=== PATIENT | female | born 1935 | race Caucasian/White ===

== ENCOUNTER 2023-10-12 10:34 | Emergency (ER) | payer SELFPAY ==
[2023-10-12 10:40] VITALS: BP 166/84; PULSE 74; TEMP 36.7; O2SAT 95; BMI 15.9
--- NOTE | 2023-10-12 10:58 | XR_ITS ---
The [address] [address] Patient Name: ANAT COLLINS MRN: [id number] date: 1935 Sex: F Assigned Patient Location: ER Current Patient Location: [facility] Accession/Order Number: [id number] Exam Date: 10/12/2023 11:55 Report Date: 10/12/2023 12:25 At the request of: KAREN PHILLIPS Procedure: XR knee LT 3V EXAM: Left knee HISTORY: . Fall . COMPARISON: None. TECHNIQUE: 4 views FINDINGS: No fracture or dislocation of the knee is noted. Small spurs are noted involving the joint. Faint calcifications are noted involving the menisci consistent with early chondrocalcinosis. There is slight fullness in the suprapatellar region suggesting a small suprapatellar effusion. XR/XR knee LT 3V IMPRESSION: .. 1. Early arthritic changes of left knee. 2. Early chondrocalcinosis. 3. Slight fullness in the suprapatellar region suggesting a small suprapatellar effusion. Electronically authenticated by: LAURENCE BARAJAS Date: 10/12/2023 12:25
--- NOTE | 2023-10-12 11:04 | ED_ITS ---
HPI HPI - Fall General Chief Complaint: Extremity Injury, Lower Stated Complaint: FACIAL INJURY/ BILATERAL LOWER EXTREMITY INJURY Time Seen by Provider: 10/12/23 10:53 Source: patient and family Mode of arrival: walk-in History of Present Illness HPI Narrative: This patient is here for evaluation of left knee pain. Actually her fall and injury occurred yesterday. She was with her family. She stumbled and a hole was that was near a shopping store. She her family member says she hit her nasal area and it bled for a while. They brought her in today because now her left knee is hurting. When I examined her she said that the right knee was not bothering her and it was only her left knee. There is no loss of consciousness there is been no change in mental status since the yesterday. She does not have any pain in her head or neck area. There is abrasions to her nasal area and some swelling in her left knee are the primary concerns today. Related Data Allergies Allergy/AdvReac Type Severity Reaction Status Date / Time No Known Drug Allergies Allergy Verified 10/12/23 10:44 Opioid HPI Opioid Management Most Recent Pain and Opioid Data: Last ED Pain Assessment 10/12/23 11:14 Exam Narrative Exam Narrative: Awake alert normal cognition GCS is 15. She has no tenderness to palpation over the neck or the cranium. Mental status is completely normal. Examining her right knee she has complete spontaneous range of motion with no ecchymosis deformity erythema or tenderness to the right knee or patella. The left knee does have some bruising and ecchymosis no joint effusion is noted. She has discomfort when trying to flex the knee while in the sitting position. The ankle and her lower limb and pelvis are asymptomatic. Constitutional Vital Signs, click to edit/add: Last Vital Signs Temp 98.0 F 10/12/23 10:40 Pulse 64 10/12/23 11:43 Resp 14 10/12/23 11:43 BP 137/69 10/12/23 11:43 Pulse Ox 98 10/12/23 11:43 O2 Del Method Room Air 10/12/23 10:40 Course Vital Signs Vital signs: Vital Signs Temperature 98.0 F 10/12/23 10:40 Pulse Rate 74 10/12/23 10:40 Respiratory Rate 16 10/12/23 10:40 Blood Pressure 166/84 H 10/12/23 10:40 Pulse Oximetry 95 10/12/23 10:40 Oxygen Delivery Method Room Air 10/12/23 10:40 Temperature 98.0 F 10/12/23 10:40 Pulse Rate 64 10/12/23 11:43 Respiratory Rate 14 10/12/23 11:43 Blood Pressure 137/69 10/12/23 11:43 Pulse Oximetry 98 10/12/23 11:43 Oxygen Delivery Method Room Air 10/12/23 10:40 MDM - Fall MDM Narrative Medical decision making narrative: X-rays were done of her left knee. She agreed that she does not need nasal x- rays. I preliminary review of the knee x-ray was negative for acute fracture. We will put her in a knee immobilizer. Ice and rest was advised that she can follow-up with our local orthopedic clinic as necessary Discharge Plan Discharge Stand Alone Forms: Portal Instructions Chief Complaint: Extremity Injury, Lower Clinical Impression: Contusion of left knee Patient Disposition: Home, Self-Care Time of Disposition Decision: 11:57 Print Language: Indonesian Additional Instructions: Alternate Tylenol with ibuprofen the pain, follow-up with Dr. Steen orthopedic clinic as needed, use knee brace until reevaluated by your physician Referrals: Hair Vera DO [Primary Care Provider] - 1 week
[2023-10-12 11:43] VITALS: BP 137/69; PULSE 64; O2SAT 98
== END 2023-10-12 12:13 | disposition home or self-care (01) ==
PROVIDERS: Emergency Provider Emergency Medicine Emergency Medical Services; PCP Family Medicine
DX: S80.02XA Contusion of left knee, initial encounter (principal); W01.10XA Fall on same level from slipping, tripping and stumbling with subsequent striking against unspecified object, initial encounter
CPT/HCPCS: 73562; 99283

== ENCOUNTER 2024-10-22 16:17 | Emergency (ER) | payer MEDICARE, SELFPAY ==
--- OUTSIDE RECORDS SUMMARY | 2024-10-20 23:59 | XMS_ITS | Continuity of Care Document ---
Author Organization [facility] Address Unknown Care Team Providers Care Non Emergency Services Ambulance Driver Name Role Phone DOLORES MORAES Primary Care Physician [phone] Encounter FT_FIN [id number] Date(s): 10/20/24 - 10/20/[address] [address]- Discharge Disposition: Home (Routine DC) Attending Physician: Eugenia Cheema PA-C Admitting Physician: Eugenia Cheema PA-C Encounter Type: Lab Drop off Allergies, Adverse Reactions, Alerts No Known Allergies Assessment and Plan Diagnostic Tests Pending * Urine Culture 10/20/24 Medications amLODIPine 2.5 mg Tab 2.5 mg = 1 tab(s), Oral, Daily, # 30 tab(s), Refills(s) 0 Start Date: 02/05/24 Status: Ordered Quantity: 30.0 Unit: tab(s) Repeat number: 1 atenolol 25 mg, Oral, Daily, Refills(s) 0 Start Date: 03/04/24 Status: Ordered Repeat number: 1 Cipro 500 mg Tab 500 mg = 1 tab(s), Oral, q12hr, X 7 day(s), # 14 tab(s), Refills(s) 0, Pharmacy: [facility] #72, 152, cm, 10/20/24 14:46:00 EDT, Height/Length Dosing, 37.6, kg, 10/20/24 14:46:00 EDT, Weight Dosing Start Date: 10/20/24 Stop Date: 10/27/24 Status: Ordered Quantity: 14.0 Unit: tab(s) Repeat number: 1 Indications: Urinary tract infection, site not specified; Unspecified symptoms and signs involving the genitourinary system; cranberry See Instructions, Refill(s) 0 Start Date: 03/04/24 Status: Ordered Repeat number: 1 D-Mannose D-Mannose Start Date: 03/04/24 Status: Ordered Repeat number: 1 Estrace 0.1 mg/g Cream See Instructions, 42.5 gm, Refill(s) 1, Apply a pea-sized amount to the vagina/urethra 3x/week for a month, then 2x/week for maintenance, [facility] #72, 152, cm, 09/15/24 15:04:00 EDT, Height/Length Dosing, 37.6, kg, 09/15/24 15:04:00 EDT, Weight Dosing Start Date: 09/15/24 Status: Ordered Quantity: 42.5 Unit: g Repeat number: 2 Indications: Postmenopausal atrophic vaginitis; Evista 60 mg Tab 60 mg = 1 tab(s), Oral, Daily, # 30 tab(s), Refills(s) 0 Start Date: 02/05/24 Status: Ordered Quantity: 30.0 Unit: tab(s) Repeat number: 1 Probiotic Probiotic Start Date: 03/04/24 Status: Ordered Repeat number: 1 Problem List Condition Confirmation Course Effective Dates Status [facility] Informant Vaginal atrophy Confirmed Active Feeling of incomplete bladder emptying Confirmed Active Recurrent UTI Confirmed Active Other urethral stricture, female Confirmed Active UTI symptoms Confirmed Active Social History Social History Type Response Smoking Status Never (less than 100 in lifetime);Never; Concerns about tobacco use in household: No entered on: 10/20/24 Sex Female Sex Representation Female (finding) Patient Care team information Care Team Personnel Name: DOLORES MORAES DO Position: FT Physician Member Role: Primary Care Physician Address: [address] [place] [address] Telecom: Care Team Related Persons Name: LIN GARCIA Name: LIN GARCIA Insurance Providers Guarantor name: ANAT COLLINS Well Plan Information #: 1 Payer: NA Payer Identifier: [id number] Member Number: [id number] Group Number: [id number] Subscriber Identifier: [id number] Relationship to Subscriber: Self Coverage Type: MEDICARE Coverage Verification Date: NA Telecom: NA Address: NA
--- OUTSIDE RECORDS SUMMARY | 2024-10-20 23:59 | XMS_ITS | Continuity of Care Document ---
Author Organization [facility] Address [address] [place] [address] Care Team Providers Care Shellfish Manager Name Role Phone DOLORES MORAES Primary Care Physician [phone] Encounter FT_BOWEN [id number] Date(s): 10/20/24 - 10/20/24 [facility] [address] [place] [address] us Encounter Diagnosis Recurrent UTI(Discharge Diagnosis) - 10/20/24 UTI symptoms(Discharge Diagnosis) - 10/20/24 Vaginal atrophy(Discharge Diagnosis) - 10/20/24 Feeling of incomplete bladder emptying(Discharge Diagnosis) - 10/20/24 Other urethral stricture, female(Discharge Diagnosis) - 10/20/24 Discharge Disposition: Home (Routine DC) Attending Physician: Eugenia Cheema PA-C Encounter Type: Clinic Allergies, Adverse Reactions, Alerts No Known Allergies Medications amLODIPine 2.5 mg Tab 2.5 mg [...] day(s), # 14 tab(s), Refills(s) 0, Pharmacy: [facility] #72 152, cm, 10/20/24 14:46:00 EDT, Height/Length Dosing, [...] for a month, then 2x/week for maintenance, [facility] #72, 152, cm, 09/15/24 15:04:00 EDT, Height/Length [...] List Condition Confirmation Course Effective Dates Status [facility] Informant Vaginal atrophy Confirmed Active Feeling of incomplete bladder emptying Confirmed Active Recurrent UTI Confirmed Active Other urethral stricture, female Confirmed Active UTI symptoms Confirmed Active Social History Social History Type Response Smoking Status Never (less than 100 in lifetime);Never; Concerns about tobacco use in household: No entered on: 10/20/24 Sex Female Sex Representation Female (finding) Hospital Discharge Instructions Patient Education 10/20/2024 15:39:16 Urinary Tract Infection, Adult Urinary Tract Infection, Adult A urinary tract infection (UTI) is an infection of any part of the urinary tract. The urinary tractincludes the kidneys, ureters, bladder, and urethra. These organs make, store, and get rid of urinein the body. An upper UTI affects the ureters and kidneys. A lower UTI affects the bladder and urethra. What are the causes? Most urinary tract infections are caused by bacteria in your genital area around your urethra, where urine leaves your body. These bacteria grow and cause inflammation of your urinary tract. What increases the risk? You are more likely to develop this condition if: ??? You have a urinary catheter that stays in place. ??? You are not able to control when you urinate or have a bowel movement (incontinence). ??? You are female and you: ??? Use a spermicide or diaphragm for control. ??? Have low estrogen levels. ??? Are . ??? You have certain genes that increase your risk. ??? You are sexually active. ??? You take antibiotic medicines. ??? You have a condition that causes your flow of urine to slow down, such as: ??? An enlarged prostate, if you are male. ??? Blockage in your urethra. ??? A kidney stone. ??? A nerve condition that affects your bladder control (neurogenic bladder). ??? Not getting enough to drink, or not urinating often. ??? You have certain medical conditions, such as: ??? Diabetes. ??? A weak disease-fighting system (immunesystem). ??? Sickle cell disease. ??? Gout. ??? Spinal cord injury. What are the signs or symptoms? Symptoms of this condition include: ??? Needing to urinate right away (urgency). ??? Frequent urination. This may include small amounts of urine each time you urinate. ??? Pain or burning with urination. ??? Blood in the urine. ??? Urine that smells bad or unusual. ??? Trouble urinating. ??? Cloudy urine. ??? Vaginal discharge, if you are female. ??? Pain in the abdomen or the lower back. You may also have: ??? Vomiting or a decreased appetite. ??? Confusion. ??? Irritability or tiredness. ??? A fever or chills. ??? Diarrhea. The first symptom in older adults may be confusion. In some cases, they may not have any symptoms until the infection has worsened. How is this diagnosed? This condition is diagnosed based on your medical history and a physical exam. You may also have other tests, including: ??? Urine tests. ??? Blood tests. ??? Tests for STIs (sexually transmitted infections). If you have had more than one UTI, a cystoscopy or imaging studies may be done to determine the cause of the infections. How is this treated? Treatment for this condition includes: ??? Antibiotic medicine. ??? Cmnb-git-hfaiqvr medicines to treat discomfort. ??? Drinking enough water to stay hydrated. If you have frequent infections or have other conditions such as a kidney stone, you may need to see a health care provider who specializes in the urinary tract (urologist). In rare cases, urinary tract infections can cause sepsis. Sepsis is a life- threatening condition that occurs when the body responds to an infection. Sepsis is treated in the hospital with IV antibiotics, fluids, and other medicines. Follow these instructions at home: Medicines ??? Take gher-dla-bykxgqy and prescription medicines only as told by your health care provider. ??? If you were prescribed an antibiotic medicine, take it as told by your health care provider. Donot stop using the antibiotic even if you start to feel better. General instructions ??? Make sure you: ??? Empty your bladder often and completely. Do not hold urine for long periods of time. ??? Empty your bladder after sex. ??? Wipe from front to back after urinating or having a bowel movement if you are female. Use each tissue only one time when you wipe. ??? Drink enough fluid to keep your urine pale yellow. ??? Keep all follow-up visits. This is important. Contact a health care provider if: ??? Your symptoms do not get better after 1???2 days. ??? Your symptoms go away and then return. Get help right away if: ??? You have severe pain in your back or your lower abdomen. ??? You have a fever or chills. ??? You have nausea or vomiting. Summary ??? A urinary tract infection (UTI) is an infection of any part of the urinary tract, which includes the kidneys, ureters, bladder, and urethra. ??? Most urinary tract infections are caused by bacteria in your genital area. ??? Treatment for this condition often includes antibiotic medicines. ??? If you were prescribed an antibiotic medicine, take it as told by your health care provider. Donot stop using the antibiotic even if you start to feel better. ??? Keep all follow-up visits. This is important. This information is not intended to replace advice given to you by your health care provider. Make sure you discuss any questions you have with your health care provider. Document Revised: 11/12/2020 Document Reviewed: 11/17/2020 [employer] Patient Education ?? 2023 [employer]. Follow Up Care 10/20/2024 13:12:28 With:Eugenia Cheema PA-C, URL Address: When:Within 6 Month(s) Patient Care team information Care Team Personnel Name: DOLORES MORAES DO Position: FT Physician Member Role: Primary Care Physician Address: [address] [place] [address] Telecom: Care Team Related Persons Name: LIN GARCIA Name: LIN GARCIA Insurance Providers Guarantor name: [facility] Information #: 1 Payer: NA Payer Identifier: [id number] Member Number: [id number] Group Number: [id number] Subscriber Identifier: [id number] Relationship to Subscriber: Self Coverage Type: MEDICARE Coverage Verification Date: 24 Telecom: NA Address:
[2024-10-22] VITALS (22 sets, daily range): BP systolic 138–194; BP diastolic 68–103; PULSE 59–98; TEMP 36.8; O2SAT 98–100; BMI 16.6
--- OUTSIDE RECORDS SUMMARY | 2024-10-22 16:25 | XMS_ITS | Clinical Summary ---
Author Organization [facility] Address [address] [place] [address] Care Team Providers Care Physics Teacher Name Role Phone Hair Vera Primary Care Provider [phone] Allergies Active Allergy Reactions Criticality Noted Date Comments Penicillins Unknown 12/10/2022 Medications atenolol (Tenormin) 25 MG tablet 3 Active amLODIPine (Norvasc) 2.5 MG tablet 3 Active raloxifene (Evista) 60 MG tablet Take 60 mg by mouth Daily Active Misc. Devices miscIndications :Closed displaced fracture of third metatarsal bone of left foot, initial encounter Dispense: Front Wheeled walker use 90 days. Ht: 4'10 Weight: 85lbs 1 Units 4 Active Additional Information Patient not taking.Reported on 09/30/2024 acetaminophen (Tylenol) 325 MG tablet Take 325 mg by mouth every 6 (six) hours if needed for mild pain Active Active Problems Problem Noted Date Diagnosed Date Unilateral inguinal hernia, without obstruction or gangrene, not specified as recurrent 12/13/2022 Asymmetrical sensorineural hearing loss 12/11/19 23 Sensorineural hearing loss (SNHL) of both ears 0 12/10/2022 Tinnitus of left ear 12/10/2022 Tonsillar cyst 12/10/2022 Osteoporosis 04/21/2007 Spinal stenosis in cervical region 04/21/2007 Encounters Date Type Department Care Team Description 10/19/2024 Telephone [facility] [address] [place] [phone] Elder Henderson DPM Bone Stimulator 10/05/2024 10:15 AM EDT Office Visit [facility] [address] [place] [phone] Elder Henderson, DPBasia Nondisplaced fracture of second metatarsal bone, left foot, initial encounter for closed fracture (Primary Dx); Pain of right foot; Osteopenia of right foot; Osteopenia of left foot 10/05/2024 Bamboo flowsheet [facility] [address] [place] [address] Elder Henderson DPM 10/05/2024 Travel 10/04/2024 Telephone [facility] [address] [place] [phone] Elder Henderson DPM Office notes needed. 10/01/2024 9:45 AM EDT Ancillary Procedure [facility] [address] [facility] [address] [place] [phone] 10/01/2024 Results Follow-Up [facility] [address] [place] [phone] Elder Henderson DPM 10/01/2024 Travel 09/30/2024 9:30 AM EDT Office Visit [facility] [address] [place] [phone] Elder Henderson, DPBasia Pain of left foot; Pain of right foot; Osteopenia of right foot; Osteopenia of left foot 09/30/2024 Bamboo flowsheet [facility] [address] [place] [phone] Elder Henderson DPM 09/30/2024 Travel 09/15/2024 10:40 AM EDT Ancillary Procedure [facility] [address] [place] [phone] 09/15/2024 10:30 AM EDT Office Visit [facility] [address] [place] [address] Dao Robledo PA Right foot pain (Primary Dx); Right foot strain, initial encounter 09/15/2024 Bamboo flowsheet [facility] [address] [facility] [place] [address] Dao Robledo PA 09/15/2024 Travel 07/26/2024 10:55 AM EDT Ancillary Procedure [facility] [address] [place] [address] 07/26/2024 10:40 AM EDT Ancillary Procedure [facility] [address] [place] [address] 07/26/2024 10:15 AM EDT Office Visit [facility] [address] [place] [address] Dao Robledo PA Right foot pain (Primary Dx); Plantar fasciitis, right; Left hip pain; Right hip pain; Left foot pain 07/26/2024 Bamboo flowsheet [facility] [address] [place] [address] Dao Robledo PA 07/26/2024 Travel from Last 3 Months Immunizations Immunization Administration Dates Next Due Influenza, High Dose Seasona l, Preservative Free 03/01/2019,01/29/2017,02/06/2016 Influenza, High-dose Seasona l, Quadrivalent, Preservative Free 01/09/2022,01/17/2021 Influenza, injectable, quadr ivalent, preservative free 01/31/2015 Influenza, seasonal, injectable 01/19/2018 Influenza, seasonal, injecta ble, preservative free 01/19/2017 Pneumococcal Conjugate, Unspecified 01/24/2016 Pneumococcal Polysaccharide PPSV23 02/03/2016 Family History Medical History Relation Name Comments black lung Father heart Mother Relation Name Status Comments Father Mother Social History Tobacco Use Types Packs/Day Years Used Date Smoking Tobacco: Never Smokeless Tobacco: Never Alcohol Use Standard Drinks/Week Comments Never 0 (1 standard drink = 0.6 oz pur e alcohol) Comments Unknown Sex and Gender Information Value Date Recorded Sex Assigned at Not on file Legal Sex Female 7:10 PM EDT Gender Identity Not on file Sexual Orientation Not on file Last Filed Vital Signs Vital Sign Reading Time Taken Comments Blood Pressure 145/83 12/13/2022 10:12 AM EDT Pulse - - Temperature - - Respiratory Rate - - Oxygen Saturation - - Inhaled Oxygen Concentration - - Weight 38.6 kg (85 lb) 12/08/2023 2:32 PM EDT Height 147.3 cm (4' 10 ) 12/08/2023 2:32 PM EDT Body Mass Index 17.77 12/08/2023 2:32 PM EDT Plan of Treatment Upcoming Encounters Date Type Department Care Team (Late st Contact Info) Description 10/25/2024 1:15 PM EDT Office Visit [facility] [address] [place] [address] Elder Henderson DPM [address] [place] [address] Procedures Procedure Name Priority Date/Time Associated Diagnosis Comments XR FOOT 3+ VIEWS RIGHT Routine 10/07/2024 11:40 AM EDT Pain of right foot Osteopenia of right foot MR FOOT RIGHT WO IV CONTRAST High Priority 10/01/2024 10:36 AM EDT Pain of right foot Osteopenia of right foot XR FOOT 3+ VIEWS RIGHT Routine 09/15/2024 10:38 AM EDT Right foot pain XR FOOT 3+ VIEWS LEFT Routine 07/26/2024 10:51 AM EDT Left foot pain XR HIP 2 OR 3 VW RIGHT Routine 07/26/2024 10:34 AM EDT Right hip pain from Last 3 Months Results * XR foot 3+ views right (10/07/2024 11:40 AM EDT) Only the most recent of2 resultswithin the time period is included. Anatomical Region Laterality Modality Lower Extremities, Foot Right Radiogra phic Imaging Narrative 10/07/2024 11:40 AM EDT Imaging Result: 10-05-24 X-rays RIGHT FOOT: Three views AP, medial oblique, lateral were obtained and show what appears to be transverse fracture mid shaft of right 2nd metatarsal that was not appreciated on past films. No other new findings are noted. Elder Henderson DPM IMG XR PROCEDURES Final Resu lt * MR foot right wo IV contrast (10/01/2024 10:36 AM EDT) Anatomical Region Laterality Modality Lower Extremities, Foot Right Magnetic Resonance 10/01/2024 11:0 6 AM EDT Impressions 10/01/2024 11:14 AM EDT Healing stress fracture of the second metatarsal. ELECTRONICALLY SIGNED BY: Prosper Marie DO Narrative 10/01/2024 11:14 AM EDT EXAM: MR FOOT RIGHT WO IV CONTRAST HISTORY: Foot pain. Osteopenia. Concern for occult fracture COMPARISON : Radiographs September 15, 2024 TECHNIQUE: Multiplanar multisequence MRI of the foot was performed without contrast. FINDINGS: Healing nondisplaced fracture of the mid diaphysis of the second metatarsal with associated bone marrow edema and adjacent soft tissue edema, likely a stress fracture. The remaining visualized bones are intact. No distinct bone lesion. Flexor and extensor tendons are intact. Visualized plantar fascia is intact. Subcutaneous soft tissue edema of the dorsum of the foot. Procedure Note Prosper Marie DO - 10/01/2024 EXAM: MR FOOT RIGHT WO IV CONTRAST HISTORY: Foot pain. Osteopenia. Concern for occult fracture COMPARISON : Radiographs September 15, 2024 TECHNIQUE: Multiplanar multisequence MRI of the foot was performed withoutcontrast. FINDINGS: Healing nondisplaced fracture of the mid diaphysis of the secondmetatarsal with associated bone marrow edema and adjacent soft tissueedema, likely a stress fracture. The remaining visualized bones areintact. No distinct bone lesion. Flexor and extensor tendons are intact.Visualized plantar fascia is intact. Subcutaneous soft tissue edema of thedorsum of the foot. IMPRESSION: Healing stress fracture of the second metatarsal. ELECTRONICALLY SIGNED BY: Prosper Marie DO Elder Henderson DPM IMG MRI PROCEDURES Final Res ult * XR foot 3+ views left (07/26/2024 10:51 AM EDT) Anatomical Region Laterality Modality Lower Extremities, Foot Left Radiogra phic Imaging Narrative 07/26/2024 11:21 AM EDT Imaging Result: Ap Lateral and oblique: Healed 3rd MT neck fracture with callus present. No New fracture seen, osteopenia present. No soft tissue swelling. Mild degenerative changes mid foot. Impression: healed 3rd Metatarsal neck fracture. Dao ALTAMIRANO IMG XR PROCEDURES Final Resul t * XR hip right 2 or 3 views (07/26/2024 10:34 AM EDT) Anatomical Region Laterality Modality Lower Extremities, Hip Right Radiograp hic Imaging Narrative 07/26/2024 12:40 PM EDT Imaging Result: AP and Lateral right hip weight bearing No acute fracture or dislocation Osteopenia, no soft tissue swelling but vascular calcifications noted Pt moderate to sever arthritic changes right hip with bone on bone articulation and subchondral cystic changes. 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 Dao ALTAMIRANO IMG XR PROCEDURES Final Resul t from Last 3 Months Insurance [employer] Care Teams Physics Teacher Relationship Specialty Start Date End Date Hair Vera DO [facility] [place] [phone] PCP - General Family Medicine 09/24/24
--- OUTSIDE RECORDS SUMMARY | 2024-10-22 16:25 | XMS_ITS | Encounter Summary ---
Author Organization [facility] Address [address] [place] [address] Care Team Providers Care Drill Setup Operator Name Role Phone Hair Vera Primary Care Provider [phone] Reason for Visit * Reason Onset Date Comments Bone Stimulator 10/19/2024 Encounter Details Date Type Department Care Team (Late st Contact Info) Description 10/19/2024 Telephone [facility] [address] [address] Elder Henderson DPM [address] [facility] [address] [place] [address] Bone Stimulator Social History Tobacco Use Types Packs/Day Years Used Date Smoking Tobacco: Never Smokeless Tobacco: Never Alcohol Use Standard Drinks/Week Comments Never 0 (1 standard drink = 0.6 oz pur e alcohol) Comments Unknown Sex and Gender Information Value Date Recorded Sex Assigned at Not on file Legal Sex Female 7:10 PM EDT Gender Identity Not on file Sexual Orientation Not on file documented as of this encounter Miscellaneous Notes * Telephone Encounter - RT. Nelida Warner - 10/21/2024 6:54 PM EDT Bone stimulator has not been ordered as of today. We will discuss at her appointment on 10-25-24. * Telephone Encounter - Elder Henderson DPM - 10/20/2024 5:05 PM EDT Yes, OK. Thanks! * Telephone Encounter - Haily Darling - 10/20/2024 4:47 PM EDT Ok I schedule her for 1:15 on Fri it was blocked but I put her in that slot hopefully that is ok. * Telephone Encounter - Elder Henderson DPM - 10/20/2024 4:39 PM EDT Patient was last seen mid September. She needs to see me every 2 weeks, which means she needs to be in around October 19 so see if she come in either October 21 or October 25? * Telephone Encounter - Haily Darling - 10/20/2024 4:24 PM EDT Nellie Valdivia I got her a appointment for November 10 at 4 she wanted late morning or afternoon or let me know if you want her in earlier. * Telephone Encounter - TIMI HORNER - 10/20/2024 3:54 PM EDT Can you get patient on the schedule for next week please. Dr. Henderson has told me that she should beseen every two weeks. * Telephone Encounter - Elder Henderson DPM - 10/19/2024 5:44 PM EDT 1. Have we heard back yet from the insurance regarding the bone stimulator? 2. Patient has to be seen soon as she was seen in the mid month September -every 2 weeks she should be seen. * Telephone Encounter - TIMI HORNER - 10/19/2024 5:09 PM EDT Patient called and would like to know if she is to come in to see you again. She wants to know if you need to assess her foot. She also inquired about a bone stimulator for healing. documented in this encounter Plan of Treatment Upcoming Encounters Date Type Department Care Team (Late st Contact Info) Description 10/25/2024 1:15 PM EDT Office Visit [facility] [address] [place] [phone] Elder Henderson DPM [address] [place] [address] documented as of this encounter Visit Diagnoses Not on filedocumented in this encounter Care Teams Drill Setup Operator Relationship Specialty Start Date End Date Hair Vera DO [address] [place] [address] PCP - General Family Medicine 09/24/24 documented as of this encounter
--- OUTSIDE RECORDS SUMMARY | 2024-10-22 16:25 | XMS_ITS | Patient Health Record ---
Author Organization [facility] Address [address] [place] [address] Care Team Providers Care Senior Consultant Name Role Phone Clarke Steen Unavailable [phone] Allergies No Known Allergies Reason For Referral No Information Medications Medication SIG (Take, Route, Frequency, Duration) Notes Start Date End Date Status Evista Active atenolol Active Social History Tobacco Use: Social History Observation Description Date Details (start date - stop date) Never Smoker NA - NA AUDIT-C (Standard) Question Answer Notes Did you have a drink containing alcohol in the p ast year? No Points 0 Interpretation Negative Tobacco Control (Standard) Question Answer Notes Tobacco use: Nonsmoker Problems Problem Type SNOMED Code ICD Code Onset Dates Problem Status W/U Status Risk Notes Problem Contusion of left knee ([id number] [id number]) Contusion of left knee, initial encounter (S80.02XA) Active confirmed Encounters Encounter Location Date Provider Diagnosis [address] [place] [address] 10/27/2023 Clarke Steen Contusion of left knee, initial encounter S80.02XA Assessments Encounter Date Diagnosis (ICD Code) Assessment Notes Treatment Notes Treatment Clinical Notes Section Notes 10/27/2023 Contusion of left knee, initial encounter (ICD-10 - S80.02XA) 10/27/2023 Other I have discussed with the patient that this most likely represents a contusion versus a occult fracture given her minimal symptoms and no pain with weightbearing. She will continue with activities as tolerated and follow-up if symptoms do not continue to improve. Import medication Plan Of Treatment No Information Insurance Providers Payer Name Payer Address Payer Phone Subscriber Number Group Number Insured Name Patient Relationship to Insured Coverage Start Date Coverage End Date Medicare [employer] [place] [address] [place] [id number] ANAT PRADO Self - patient is the insured Medical (General) History Medical History History ICD Code High Blood Pressure
--- OUTSIDE RECORDS SUMMARY | 2024-10-22 16:26 | XMS_ITS | Encounter Summary ---
Author Organization [facility] Address [address] [place] [address] Care Team Providers Care Arm Maker Name Role Phone Hair Vera DO Primary Care Provider [phone] Hair Vera DO Primary Care Provider [phone] Encounter Details Date Type Department Care Team (Late Contact Info) Description 06/19/2020 Abstract [facility] [address] [place] [address] Lucy Koch MA Social History Tobacco Use Types Packs/Day Years Used Date Smoking Tobacco: Never Assessed Comments Unknown Sex and Gender Information Value Date Recorded Sex Assigned at Not on file Legal Sex Female 7:10 PM EDT Gender Identity Not on file Sexual Orientation Not on file documented as of this encounter Plan of Treatment Upcoming Encounters Date Type Department Care Team (Late Contact Info) Description 10/25/2024 1:15 PM EDT Office Visit [facility] [address] [place] [address] Elder Henderson DPM [address] [place] [address] documented as of this encounter Visit Diagnoses Not on filedocumented in this encounter Care Teams Arm Maker Relationship Specialty Start Date End Date Hair Vera DO PCP - General 11/18/22 09/23/24 Hair Vera DO [address] [place] [address] PCP - General Family Medicine 09/24/24 documented as of this encounter
--- NOTE | 2024-10-22 16:35 | ECG_ITS ---
[facility] Test Date: 2024-10-22 Pat Name: ANAT COLLINS Department: Room: - Gender: Female Infant Babysitter: : 1935 Requested By: 1030 Order Number: [id number] Reading MD: LEONA ANDREWS M.D. Measurements Intervals Dora Rate: 64 P: 33 CA: 186 QRS: 60 QRSD: 78 T: 55 QT: 410 QTc: 419 Interpretive Statements 1100 Sinus rhythm 9110 normal ECG Compared to ECG 09/17/2018 12:17:11 ST (T wave) deviation no longer present Possible ischemia no longer present Electronically Signed On 10-24-2024 17:20:43 EDT by LEONA ANDREWS M.D.
--- NOTE | 2024-10-22 16:36 | ED.GENADUL1 ---
HPI HPI - General Adult General Chief complaint: Recheck/Abnormal Lab/Rx Stated complaint: HYPERTENSION Time Seen by Provider: 10/22/24 16:22 Source: patient and family Mode of arrival: walk-in Limitations: no limitations History of Present Illness HPI narrative: 89-year-old female presents for elevated blood pressure. She checked at home because she just did not feel right. She had very minimal headache. No chest pain or palpitations or shortness of breath or dizziness. She has been on blood pressure medication and has been taking it regularly. No fever vomiting or diarrhea. Recently she was diagnosed with UTI, a few days ago, and was put on Cipro. Family states that every time she gets put on Cipro her blood pressure goes up. Related Data Home Medications ?Medication ?Instructions ?Recorded ?Confirmed amlodipine 2.5 mg tablet 2.5 mg PO BID 10/22/24 10/22/24 atenolol 25 mg tablet 25 mg PO BID 10/22/24 10/22/24 meclizine 25 mg tablet 25 mg PO DAILY PRN dizziness 10/22/24 10/22/24 pantoprazole 40 mg tablet,delayed 40 mg PO DAILY 10/22/24 10/22/24 release raloxifene 60 mg tablet 60 mg PO DAILY 10/22/24 10/22/24 Previous Rx's ?Medication ?Instructions ?Recorded cephalexin 500 mg capsule 500 mg PO TID 5 days #15 caps 10/22/24 Allergies Allergy/AdvReac Type Severity Reaction Status Date / Time No Known Drug Allergies Allergy Verified 10/22/24 16:24 Review of Systems ROS Narrative A ten point review of systems is negative except as noted above. PFSH PFSH Social History Little interest or pleasure in doing things: not at all Feeling down, depressed, or hopeless: not at all Exam Narrative Exam Narrative: Nurses note and vital signs reviewed and patient is not hypoxic. General: The patient appears well and in no apparent distress. Patient is resting comfortably on cart. Skin: Warm, dry, no pallor noted. There is no rash noted. Head: Normocephalic, atraumatic Eye: Normal conjunctiva, no drainage Ears, Nose, Mouth, and Throat: oral mucosa is moist. Nares patent. Cardiovascular: Regular Rate and Rhythm Respiratory: Patient is in no distress, no accessory muscle use, lungs are clear to auscultation, no wheezing, rales or rhonchi Back: non-tender GI: Soft and nontender Musculoskeletal: The patient has no evidence of calf tenderness, no pitting edema, symmetrical pulses noted bilaterally Neurological: A&O, normal speech; hard of hearing Psychiatric: Cooperative Constitutional Vital Signs, click to edit/add: Last Vital Signs Temp 98.3 F 10/22/24 16:24 Pulse 73 10/22/24 18:14 Resp 21 H 10/22/24 18:14 BP 144/69 H 10/22/24 18:14 Pulse Ox 98 10/22/24 18:14 O2 Del Method Room Air 10/22/24 16:24 Course Vital Signs Vital signs: Vital Signs Temperature 98.3 F 10/22/24 16:24 Pulse Rate 71 10/22/24 16:24 Respiratory Rate 18 10/22/24 16:24 Blood Pressure 180/98 H 10/22/24 16:24 Pulse Oximetry 100 10/22/24 16:24 Oxygen Delivery Method Room Air 10/22/24 16:24 Temperature 98.3 F 10/22/24 16:24 Pulse Rate 73 10/22/24 18:14 Respiratory Rate 21 H 10/22/24 18:14 Blood Pressure 144/69 H 10/22/24 18:14 Pulse Oximetry 98 10/22/24 18:14 Oxygen Delivery Method Room Air 10/22/24 16:24 Medical Decision Making MDM Narrative Medical decision making narrative: She presented with elevated blood pressure and was given 10 mg of IV hydralazine. She had appropriate decrease in her blood pressure and she is able to be discharged home. Family is concerned that the Cipro is causing her blood pressure to go high. Lab Data Labs: Lab Results 10/22/24 10/22/24 Range/Units 16:44 17:15 WBC 7.3 (4.0-11.0) 10^3/uL RBC 4.05 L (4.20-5.40) 10^6/uL Hgb 13.0 (12.0-16.0) g/dL Hct 38.9 (36.0-48.0) % MCV 96.0 (81.0-99.0) fL MCH 32.1 (26.7-34.0) pg MCHC 33.4 (29.9-35.2) g/dL RDW 13.1 (11.0-15.0) % Plt Count 216 (150-450) 10^3/uL MPV 11.3 (9.5-13.5) fL Neut % (Auto) 72.8 (43.0-75.0) % Lymph % (Auto) 16.0 L (20.5-60.0) % Hubbard % (Auto) 9.7 (1.7-12.0) % Eos % (Auto) 0.4 L (0.9-7.0) % Baso % (Auto) 0.4 (0.2-2.0) % Neut # (Auto) 5.3 (1.4-6.5) 10^3/uL Lymph # (Auto) 1.2 (1.2-3.8) 10^3/uL Hubbard # (Auto) 0.7 (0.3-0.8) 10^3/uL Eos # (Auto) 0.0 (0.0-0.7) 10^3/uL Baso # (Auto) 0.0 (0.0-0.1) 10^3/uL Abs Immat Gran (auto) 0.05 H (0.00-0.03) 10^3/uL Imm/Tot Granulo (auto) 0.7 H (0.0-0.5) % Sodium 135 L (136-145) mmol/L Potassium 3.9 (3.5-5.1) mmol/L Chloride 95 L (98-107) mmol/L Carbon Dioxide 29.9 (21.0-32.0) mmol/L Anion Gap 14.0 BUN 19.0 H (7.0-18.0) mg/dL Creatinine 0.59 (0.55-1.02) mg/dL Est GFR ( Amer) >60 (>=60 mL/min/1.73m^2) Est GFR (Non-Af Amer) >60 (>=60 mL/min/1.73m^2) BUN/Creatinine Ratio 32.2 Glucose 119 H (74-106) mg/dL Calcium 10.0 (8.5-10.1) mg/dL Urine Color Lt. yellow (YELLOW) Urine Clarity Clear (CLEAR) Urine pH 7.5 (5.0-9.0) Ur Specific [place] 1.010 (1.005-1.025) Urine Protein Negative (NEG/TRACE) mg/dL Urine Glucose (UA) Negative (NEGATIVE) mg/dL Urine Ketones Negative (NEGATIVE) mg/dL Urine Occult Blood Trace-i (NEGATIVE) Urine Nitrite Negative (NEGATIVE) Urine Bilirubin Negative (NEGATIVE) Urine Urobilinogen 0.2 (0.2-1.0) EU/dL Ur Leukocyte Esterase Negative (NEGATIVE) Urine RBC 2-5 A (0-2) #/HPF Urine WBC 0-2 A (NONE SEEN) #/HPF Ur Squamous Epith Cells Rare (NONE/RARE) #/LPF Urine Crystals None seen (None Seen) #/HPF Urine Bacteria None seen (NONE SEEN) #/HPF Urine Casts None seen (NONE SEEN) #/LPF Urine Mucus None seen (NONE SEEN) Ur Culture Indicated? No Discharge Plan Discharge Chief Complaint: Recheck/Abnormal Lab/Rx Clinical Impression: Hypertension Patient Disposition: Home, Self-Care Time of Disposition Decision: 18:37 Condition: Good Mode of Transportation: Private Vehicle Prescriptions / Home Meds: New cephalexin 500 mg capsule 500 mg PO TID 5 Days Qty: 15 0RF No Action amlodipine 2.5 mg tablet 2.5 mg PO BID atenolol 25 mg tablet 25 mg PO BID meclizine 25 mg tablet 25 mg PO DAILY PRN (Reason: dizziness) pantoprazole 40 mg tablet,delayed release (DR/EC) 40 mg PO DAILY raloxifene 60 mg tablet 60 mg PO DAILY Print Language: Setswana Instructions: Hypertension (ED) Additional Instructions: Discontinue Cipro, begin Keflex. Referrals: Hair Vera DO [Primary Care Provider] - 1 week
[2024-10-22 16:56] LABS: Hematocrit 38.9 % (36.0-48.0); Hemoglobin 13.0 g/dL (12.0-16.0); Immature Granulocytes Abs Auto 0.05 10^3/uL (0.00-0.03); Immature Granulocytes Pct Auto 0.7 % (0.0-0.5); Lymphocytes Absolute Auto 1.2 10^3/uL (1.2-3.8); Mean Corpuscular HGB Conc 33.4 g/dL (29.9-35.2); Mean Corpuscular Hemoglobin 32.1 pg (26.7-34.0); Mean Corpuscular Volume 96.0 fL (81.0-99.0); Platelet Count 216 10^3/uL (150-450); Red Blood Count 4.05 10^6/uL (4.20-5.40); White Blood Count 7.3 10^3/uL (4.0-11.0)
[2024-10-22 17:06] LABS: Anion Gap 14.0; Blood Urea Nitrogen 19.0 mg/dL (7.0-18.0); Calcium 10.0 mg/dL (8.5-10.1); Carbon Dioxide 29.9 mmol/L (21.0-32.0); Chloride 95 mmol/L (98-107); Estimated GFR (African America >60 (>=60 mL/min/1.73m^2); Estimated GFR (Non-African Ame >60 (>=60 mL/min/1.73m^2); Glucose 119 mg/dL (74-106); Potassium 3.9 mmol/L (3.5-5.1); Sodium 135 mmol/L (136-145)
[2024-10-22 17:34] LABS: Glucose Urine UA NEGATIVE (NEGATIVE)
[2024-10-22 17:41] LABS: Cast Seen? NONE SEEN #/LPF (NONE SEEN); Crystals Seen? None Seen #/HPF (None Seen); Urine Culture Indicated NO
[2024-10-22] MEDS: HYDRALAZINE HCL 20 MG/ML VIAL 10 MG IVP (17:47)
[2024-10-22] MEDS: CEPHALEXIN 500 MG CAPSULE PO (18:52)
== END 2024-10-22 19:01 | disposition home or self-care (01) ==
PROVIDERS: Emergency Provider Emergency Medicine; PCP Family Medicine
DX: I10 Essential (primary) hypertension (principal); Z79.899 Other long term (current) drug therapy; Z87.440 Personal history of urinary (tract) infections
CPT/HCPCS: 36415; 80048; 81001; 85025; 93005; 96374; 99285; J0360